=== PATIENT | female | born 1970 | race Caucasian/White ===

== ENCOUNTER 2018-12-13 18:35 | Emergency (ER) | payer OTHER ==
[2018-12-13] MEDS ORDERED: PROVENTIL HFA6.7 GM (18:44)
[2018-12-13] MEDS ORDERED: RELPAX40 MG (18:45)
== END 2018-12-13 20:32 | disposition home or self-care (01) ==
LOC: ER 18:35
DX: R51 Headache (principal); M54.2 Cervicalgia

== ENCOUNTER 2018-12-18 14:53 | Emergency (ER) | payer OTHER ==
[~2018-12-18] VITALS: Ht 162.6 cm; Wt 68.0 kg
[~2018-12-18 14:53] MED LIST: PROVENTIL HFA6.7 GM; RELPAX40 MG
[2018-12-18] MEDS ORDERED: ROBAXIN-750750 MG PO (19:32)
[2018-12-18] MEDS ORDERED: valium PO (19:32)
[2018-12-18] MEDS ORDERED: NAPROXEN500 MG PO (19:32)
== END 2018-12-18 19:48 | disposition home or self-care (01) ==
LOC: ER 14:53
DX: M54.2 Cervicalgia (principal)